=== PATIENT | male | born 1960 | race Caucasian/White ===

== ENCOUNTER 2024-09-15 15:55 | Inpatient (IN) | payer OTHER ==
[~2024-09-15] VITALS: Ht 180.3 cm; Wt 97.3 kg
[2024-09-15 16:47] LABS: BASOPHILS % (AUTO) 0.9 % (0.0-2.0); EOSINOPHILS % (AUTO) 2.3 % (1.0-6.0); HEMATOCRIT 38.8 % (41-53); HEMOGLOBIN 13.1 g/dL (13.5-17.5); LYMPHOCYTES # (AUTO) 1.6 K/uL (1.0-4.8); LYMPHOCYTES % (AUTO) 31.1 % (22.0-44.0); MEAN CORPUSCULAR HEMOGLOBIN 30.3 pg (26.0-34.0); MEAN CORPUSCULAR HGB CONC 33.8 G/dL (31.0-37.0); MEAN CORPUSCULAR VOLUME 89 fL (80-100); MONOCYTES # (AUTO) 0.5 K/uL (0.1-1.0); MONOCYTES % (AUTO) 9.4 % (2.0-9.0); NEUTROPHILS # (AUTO) 2.9 K/uL (1.8-7.7); NEUTROPHILS % (AUTO) 56.3 % (40.0-70.0); PLATELET COUNT (AUTO) 268 K/uL (150-450); RED BLOOD CELL COUNT(AUTO) 4.34 MIL/uL (4.50-5.90); RED CELL DISTRIBUTION WIDTH 13.2 % (11.5-14.5); WHITE BLOOD COUNT (AUTO) 5.1 K/uL (4.5-11.0)
[2024-09-15 17:00] LABS: ANION GAP 8 mmol/L (8-16); CALCIUM, TOTAL 8.9 mg/dL (8.8-10.5); CARBON DIOXIDE 29 mmol/L (22-29); CHLORIDE 105 mmol/L (98-107); CREATININE 1.08 mg/dL (0.60-1.30); GLOMERULAR FILTR. RATE CALC > 60 mL/min (>60); GLUCOSE,RANDOM 89 mg/dL (70-110); SODIUM SERUM 142 mmol/L (136-145); UREA NITROGEN, BLOOD 20 mg/dL (7-18)
[2024-09-15 17:15] LABS: LACTIC ACID 0.8 mmol/L (0.4-2.0)
[2024-09-15] MEDS ORDERED: IOHEXOL 350 MG/ML 100 ML VIAL ONE (17:33)
[2024-09-15] MEDS ORDERED: SODIUM CHLORIDE 0.9% 100 ML ONE (17:33)
[2024-09-15] MEDS ORDERED: 0.9% SODIUM CHLORIDE 10 ML SYRINGE IVP ONE (17:33)
[2024-09-15] MEDS: PIPERACILLIN/TAZO 3.375 GM/D5W 50 ML IV ONE (17:36)
[2024-09-15] MEDS: SODIUM CHLORIDE 0.9% 1,000 ML IV ONE (17:36)
[2024-09-15] MEDS ORDERED: ACET650S14 PR (18:48)
[2024-09-15] MEDS ORDERED: ASPI-1450 PO (18:48)
[2024-09-15] MEDS ORDERED: AMIT-260 PO ×2 (18:48)
[2024-09-15] MEDS ORDERED: DICL100G60 TP (19:15)
[2024-09-15] MEDS ORDERED: LEVO25TA9 PO (19:15)
[2024-09-15] MEDS ORDERED: CETI-450 PO (19:15)
[2024-09-15] MEDS ORDERED: DOCU-385 PO (19:15)
[2024-09-15] MEDS ORDERED: ROSU20TA98 PO (19:15)
[2024-09-15] MEDS ORDERED: MECL-302 PO (19:15)
[2024-09-15] MEDS ORDERED: LOSA-381 PO (19:15)
[2024-09-15] MEDS ORDERED: METO25 PO (19:15)
[2024-09-15] MEDS ORDERED: PANT-31 PO (19:15)
[2024-09-15] MEDS ORDERED: CHOL25TA4 PO (19:15)
[2024-09-15] MEDS ORDERED: ALBUTEROL SULFATE 2.5 MG/0.5 ML NEB SOLUTION NEB PRN (19:45)
[2024-09-15] MEDS ORDERED: IPRATROPIUM BROMIDE 0.5 MG/2.5 ML NEB SOLUTION NEB PRN (19:45)
[2024-09-15] MEDS ORDERED: ONDANSETRON HCL 4 MG/2 ML VIAL IVP PRN (19:45)
[2024-09-15] MEDS ORDERED: PANT20TA18 PO (20:00)
[2024-09-15] MEDS ORDERED: ACET-2247 PO (20:00)
[2024-09-15] MEDS: DOCUSATE SODIUM 100 MG CAPSULE PO SCH (20:29)
[2024-09-15] MEDS: ACETAMINOPHEN 325 MG TABLET PO PRN (20:57)
[2024-09-15] MEDS: VANCOMYCIN 1.75GM/WATER(PEG) 350 ML IV ONE (21:43)
[2024-09-15 21:53] VITALS: BP 153/90; PULSE 60; RESP 18; TEMP 97.9; O2SAT 60
[2024-09-15] MEDS: HEPARIN SODIUM,PORCINE 5,000 UNITS/ML VIAL SQ SCH (23:08)
[2024-09-15] MEDS: PIPERACILLIN/TAZO 3.375 GM/D5W 50 ML IV SCH (23:31)
[2024-09-16 07:18] LABS: BASOPHILS % (AUTO) 0.8 % (0.0-2.0); EOSINOPHILS % (AUTO) 3.5 % (1.0-6.0); HEMATOCRIT 38.6 % (41-53); HEMOGLOBIN 13.3 g/dL (13.5-17.5); LYMPHOCYTES # (AUTO) 1.1 K/uL (1.0-4.8); LYMPHOCYTES % (AUTO) 25.7 % (22.0-44.0); MEAN CORPUSCULAR HEMOGLOBIN 30.6 pg (26.0-34.0); MEAN CORPUSCULAR HGB CONC 34.3 G/dL (31.0-37.0); MEAN CORPUSCULAR VOLUME 89 fL (80-100); MONOCYTES # (AUTO) 0.4 K/uL (0.1-1.0); MONOCYTES % (AUTO) 10.5 % (2.0-9.0); NEUTROPHILS # (AUTO) 2.5 K/uL (1.8-7.7); NEUTROPHILS % (AUTO) 59.5 % (40.0-70.0); PLATELET COUNT (AUTO) 246 K/uL (150-450); RED BLOOD CELL COUNT(AUTO) 4.33 MIL/uL (4.50-5.90); RED CELL DISTRIBUTION WIDTH 13.3 % (11.5-14.5); WHITE BLOOD COUNT (AUTO) 4.3 K/uL (4.5-11.0)
[2024-09-16 07:35] LABS: ANION GAP 6 mmol/L (8-16); CALCIUM, TOTAL 8.7 mg/dL (8.8-10.5); CARBON DIOXIDE 28 mmol/L (22-29); CHLORIDE 107 mmol/L (98-107); CREATININE 1.13 mg/dL (0.60-1.30); GLOMERULAR FILTR. RATE CALC > 60 mL/min (>60); GLUCOSE,RANDOM 99 mg/dL (70-110); POTASSIUM 4.3 mmol/L (3.5-5.1); SODIUM SERUM 141 mmol/L (136-145); UREA NITROGEN, BLOOD 16 mg/dL (7-18)
[2024-09-16 08:24] VITALS: BP 149/82; PULSE 56; RESP 18; TEMP 97.3; O2SAT 97
[2024-09-16] MEDS: VANCOMYCIN 1.25 GM/WATER(PEG) 250 ML IV SCH (08:33)
[2024-09-16 20:33] VITALS: BP 143/77; PULSE 64; RESP 18; TEMP 97.2; O2SAT 97
== END 2024-09-16 23:56 | disposition left against medical advice (07) | DRG 603 ==
LOC: EMS 15:55 → EDH 19:44 → 6S 21:30
PROVIDERS: ADMIT Internal Medicine; ATTEND Internal Medicine
DX: L03.315 Cellulitis of perineum (principal); I25.10 Atherosclerotic heart disease of native coronary artery without angina pectoris; Z53.21 Procedure and treatment not carried out due to patient leaving prior to being seen by health care provider; E03.9 Hypothyroidism, unspecified; I12.9 Hypertensive chronic kidney disease with stage 1 through stage 4 chronic kidney disease, or unspecified chronic kidney disease; B19.20 Unspecified viral hepatitis C without hepatic coma; K21.9 Gastro-esophageal reflux disease without esophagitis; E78.00 Pure hypercholesterolemia, unspecified; N18.9 Chronic kidney disease, unspecified; E78.5 Hyperlipidemia, unspecified; Z95.1 Presence of aortocoronary bypass graft; Z88.1 Allergy status to other antibiotic agents; Z88.5 Allergy status to narcotic agent
CPT/HCPCS: 74177; 80048; 83605; 83735; 85025; 99285; J1644; J2543; J7030; J7050